=== PATIENT | male | born 1990 | race Caucasian/White ===

== ENCOUNTER 2020-06-04 21:06 | Emergency (ER) | payer OTHER ==
[~2020-06-04 21:06] MED LIST: CLEOCIN HCL150 MG PO; FLEXERIL10 MG PO; KEFLEX250 MG PO; VOLTAREN **OUT75 MG PO; ZOFRAN4 MG PO
[2020-06-04 21:55] LABS: BASOPHIL 0.2 % (0-2); EOSINOPHIL 0 % (0-5); HCT 41.4 % (42.0-52.0); HGB 15.1 g/dl (13.2-18.0); MCH 32.9 pg (25.0-31.0); MCHC 36.5 g/dL (32.0-36.0); MCV 90.2 fL (78.0-100.0); MONOCYTE 13.8 % (0-12); MPV 9.5 fL (6.0-9.5); NEUTROPHIL 65.8 % (41-80); NRBC 0; PLT 102 K/uL (150-400); RBC 4.59 M/uL (4.70-6.00); RDW 11.8 % (11.5-14.0); WBC 4.2 K/uL (4.0-10.5)
[2020-06-04 22:08] LABS: ALBUMIN 3.6 g/dL (3.4-5.0); BILIRUBIN - TOTAL 0.6 mg/dL (0.2-1.0); CREATININE 0.86 mg/dL (0.67-1.17); GLOBULIN (CALCULATION) 3.4 g/dL; POTASSIUM 3.4 mmol/L (3.5-5.1)
[2020-06-04 22:32] LABS: LACTIC ACID 0.7 mmol/L (0.4-1.9)
[2020-06-04 23:05] LABS: CORONAVIRUS 2019 SARS-COV-2 NEGATIVE (NEGATIVE); INFLUENZA A NAA NEGATIVE (NEGATIVE)
[2020-06-05 01:00] LABS: MONOSPOT (MONONUCLEOSIS) NEGATIVE (NEGATIVE)
[2020-06-05] MEDS ORDERED: VIBRAMYCIN100 MG PO (01:17)
[2020-06-05] MEDS ORDERED: IBUPROFEN800 MG PO (01:17)
[2020-06-05] MEDS ORDERED: ONDANSETRON ODT4 MG SL (01:17)
[2020-06-05 01:38] LABS: BILIRUBIN NEGATIVE (NEGATIVE); BLOOD NEGATIVE Ery/uL (NEGATIVE); CLARITY CLEAR (CLEAR); COLOR YELLOW (YELLOW); GLUCOSE (U) NORMAL (NORMAL); LEUKOCYTES NEGATIVE Leu/uL (NEGATIVE); NITRITE NEGATIVE (NEGATIVE); PROTEIN NEGATIVE (NEGATIVE); SPECIFIC GRAVITY <=1.005 (1.001-1.030); UROBILINOGEN 0.2 mg/dL (0.2-1.0); pH 5.5 (5.0-9.0)
[2020-06-07 15:10] LABS: LYME IGG/IGM AB <0.91 ISR (0.00-0.90)
[2020-06-08 15:11] LABS: E. CHAFFEENSIS (HME) IGG TITER Negative (Neg:<1:64); E. CHAFFEENSIS (HME) IGM TITER Negative (Neg:<1:20); HGE IGG TITER Negative (Neg:<1:64); HGE IGM TITER Negative (Neg:<1:20)
[2020-06-17 16:10] LABS: FRANCISELLA TULARENSIS IGG Negative (Negative); FRANCISELLA TULARENSIS IGM Negative (Negative)
== END 2020-06-05 01:27 | disposition home or self-care (01) ==
LOC: FER 21:06
PROVIDERS: Emergency Medicine Emergency Medical Services
DX: R50.9 Fever, unspecified (principal); R53.83 Other fatigue; R53.81 Other malaise; F17.200 Nicotine dependence, unspecified, uncomplicated; Z20.822 Contact with and (suspected) exposure to COVID-19
CPT/HCPCS: 36415; 71045; 71275; 80053; 81003; 83605; 84145; 85025; 86308; 86618; 86666; 86757; 87040; J2543; J7030; Q9967; U0002

== ENCOUNTER 2021-03-28 19:30 | Emergency (ER) | payer OTHER ==
[~2021-03-28 19:30] MED LIST changes: +IBUPROFEN800 MG PO; +ONDANSETRON ODT4 MG SL; +VIBRAMYCIN100 MG PO
[2021-03-28 20:17] LABS: BASOPHIL 0.3 % (0-2); EOSINOPHIL 0.2 % (0-5); HCT 49.7 % (42.0-52.0); LYMPHOCYTE 5.7 % (15-48); MCH 32.5 pg (25.0-31.0); MCHC 36.2 g/dL (32.0-36.0); MCV 89.7 fL (78.0-100.0); MPV 10.8 fL (6.0-9.5); NEUTROPHIL 86.5 % (41-80); NRBC 0; PLT 141 K/uL (150-400); RBC 5.54 M/uL (4.70-6.00); RDW 12.1 % (11.5-14.0); WBC 8.8 K/uL (4.0-10.5)
[2021-03-28 20:30] LABS: ALBUMIN 4.7 g/dL (3.4-5.0); BILIRUBIN - TOTAL 1.2 mg/dL (0.2-1.0); BUN/CREAT RATIO (CALC) 17.8 RATIO; CREATININE 1.01 mg/dL (0.67-1.17); GLOBULIN (CALCULATION) 3.5 g/dL; TOTAL PROTEIN 8.2 g/dL (6.4-8.2)
[2021-03-28 20:55] LABS: CORONAVIRUS 2019 SARS-COV-2 NEGATIVE (NEGATIVE); INFLUENZA A NAA NEGATIVE (NEGATIVE)
[2021-03-28] MEDS ORDERED: PERCOCET 5-3251 EACH PO (22:23)
[2021-03-28] MEDS ORDERED: PHENERGAN25 M1 PO (22:23)
[2021-03-28] MEDS ORDERED: ONDANSETRON ODT4 MG PO (22:23)
== END 2021-03-28 23:05 | disposition home or self-care (01) ==
LOC: FER 19:30
PROVIDERS: Internal Medicine
DX: A08.4 Viral intestinal infection, unspecified (principal); F17.210 Nicotine dependence, cigarettes, uncomplicated; Z20.822 Contact with and (suspected) exposure to COVID-19
CPT/HCPCS: 36415; 70450; 71045; 80053; 83690; 84145; 85025; 93005; J1170; J2550; J7120; U0002

== ENCOUNTER 2021-07-10 08:44 | Emergency (ER) | payer OTHER ==
[~2021-07-10 08:44] MED LIST changes: +ONDANSETRON ODT4 MG PO; +PERCOCET 5-3251 EACH PO; +PHENERGAN25 M1 PO
[2021-07-10] MEDS ORDERED: MELOXICAM15 MG PO (09:10)
[2021-07-10] MEDS ORDERED: CYCLOBENZAPRINE10 MG PO (10:18)
[2021-07-10] MEDS ORDERED: PREDNISONE 20MG20 MG PO (10:18)
== END 2021-07-10 10:28 | disposition home or self-care (01) ==
LOC: FER 08:44
DX: S29.012A Strain of muscle and tendon of back wall of thorax, initial encounter (principal); M54.2 Cervicalgia; Z28.310 Unvaccinated for COVID-19
CPT/HCPCS: 99283; J1040; J1885